=== PATIENT | male | born 2005 | race Caucasian/White ===

== ENCOUNTER 2025-03-24 10:48 | Outpatient (CLI) | payer OTHER, SELFPAY | END 2025-03-24 10:49 | disposition home or self-care (01) | PROVIDERS: PCP Family Medicine; Visit Provider Family Medicine | DX: Z00.00 Encounter for general adult medical examination without abnormal findings (principal); F41.8 Other specified anxiety disorders; R53.83 Other fatigue; Z76.89 Persons encountering health services in other specified circumstances | CPT/HCPCS: 82306; 84443 ==